=== PATIENT | female | born 1990 ===

== ENCOUNTER 2021-01-22 18:31 | Observation (INO) | payer OTHER ==
[2021-01-22] MEDS ORDERED: ACETAMINOPHEN 325 MG TAB PO PRN (21:00)
[2021-01-22] MEDS ORDERED: DOCUSATE SODIUM 100 MG CAP PO PRN (21:00)
[2021-01-22 22:25] VITALS: BP 104/62
--- NOTE | 2021-01-22 22:57 | Ultrasound Report ---
ULTRASOUND OBSTETRIC LIMITED ULTRASOUND BIOPHYSICAL PROFILE INDICATION / CLINICAL INFORMATION: GESTATION. Clinical Gestational Age (GA) in weeks, days: 39 weeks 2 days TECHNIQUE: Transabdominal. COMPARISON: None available. FINDINGS: BREATHING MOVEMENT = 2 GROSS BODY MOVEMENT = 2 TONE = 2 QUALITATIVE AMNIOTIC FLUID VOLUME = 2 TOTAL BIOPHYSICAL SCORE = 8/8 HEART RATE (beats per minute): 119 Single intrauterine . Biparietal Diameter = 9.0 cm = 36, 4 weeks, days Head Circumference = 31.9 cm = 36, 0 weeks, days Abdominal Circumference = 33.9 cm = 37, 6 weeks, days Femur Length = 6.3 cm = 32, 4 weeks, days Average Ultrasound Age (AUA) = 119 Heart Rate: 119 beats per minute. Estimated Weight in grams (if calculated): 2884 Estimated Weight Growth Percentile (if calculated): 9% Position: cephalic. IMPRESSION: 1. Single, living intrauterine with estimated sonographic age of 35 weeks 5 days. 2. Biophysical Score = 8/8 Signer Name: Kev Lin MD Signed: 01/22/2021 10:53 PM Workstation Name: [id number]
[2021-01-23] MEDS ORDERED: PRENATAL VIT27-FE FUMARATE-FOLIC ACID VIT TAB PO SCH (10:00)
== END 2021-01-22 22:39 | disposition home or self-care (01) ==
LOC: TRG 18:31 → APU 18:43 → TRG 20:19 → APU 20:41
DX: O36.5930 Maternal care for other known or suspected poor fetal growth, third trimester, not applicable or unspecified (principal); O62.9 Abnormality of forces of labor, unspecified; Z3A.39 39 weeks gestation of pregnancy
CPT/HCPCS: 59025; 76816; 76819; G0378; G0379

== ENCOUNTER 2021-01-28 10:23 | Inpatient (IN) | payer OTHER ==
[2021-01-28] MEDS ORDERED: miSOPROStol 200 MCG TAB PR PRN (15:20)
[2021-01-28] MEDS ORDERED: LIDOCAINE (2%) 20 MG/1 ML VIAL 20 ML MDV INFILTRATI NR (15:20)
[2021-01-28] MEDS ORDERED: LOPERAMIDE 2 MG CAP PO PRN (15:20)
[2021-01-28] MEDS ORDERED: OXYTOCIN 10 UNIT/1 ML INJ IM PRN (15:20)
[2021-01-28] MEDS ORDERED: METHYLERGONOVINE MALEATE 0.2 MG/ML VIAL IM PRN (15:20)
--- NOTE | 2021-01-28 15:29 | History and Physical Report ---
History of Present Illness Date of examination: 01/28/21 Date of admission: 01/28/21 10:24 Chief complaint: My water broke at 0700 this morning History of present illness: Early entry to care at [facility], course complicated by +Covid (12/31/2020). Past History Past Medical History: hypertension Past Surgical History: no surgical history Family/Genetic History: hypertension (Mother) Social history: no significant social history - Obstetrical History Expected Date of Delivery: 01/27/21 Actual Gestation: 40 Week(s) 1 Day(s) : 3 Para: 2 Hx # Term Pregnancies: 2 Number of Living Children: 2 #1 Infant Gender: Male year: ,[birth year] Birthweight: 4500 kg Method of Delivery: Vaginal Gestational age at delivery: 40 #2 Infant Gender: Female year: ,[birth year] Birthweight: 3000 kg Method of Delivery: Vaginal Medications and Allergies Allergies Allergy/AdvReac Type Severity Reaction Status Date / Time No Known Allergies Allergy Unverified 01/22/21 20:00 Home Medications Medication Instructions Recorded Confirmed Last Taken Type No Known Home Medications [No 01/22/21 01/22/21 Unknown History Reported Home Medications] Active Meds: Active Medications Acetaminophen (Acetaminophen 325 Mg Tab) 650 mg PO Q4H PRN PRN Reason: Pain, Mild (1-3) Butorphanol Tartrate (Butorphanol 2 Mg/1 Ml Inj) 2 mg IV Q2H PRN PRN Reason: Pain , Severe (7-10) Carboprost Tromethamine (Carboprost Tromethamine 250 Mcg/1 Ml Inj) 250 mcg IM ONCE PRN PRN Reason: Uterine Bleeding Ephedrine Sulfate (Ephedrine Sulfate 50 Mg/1 Ml Inj) 10 mg IV Q2M PRN PRN Reason: Hypotension Oxytocin/Sodium Chloride (Pitocin/Ns 30 Unit/500ml) 30 units in 500 mls @ 4 mls/hr IV TITR BECKA; Protocol Lactated Ringer's (Lactated Ringers) 1,000 mls @ 125 mls/hr IV DIRECT BECKA Oxytocin/Sodium Chloride (Pitocin/Ns 30 Unit/500ml) 30 units in 500 mls @ 40 mls/hr IV TITR BECKA; Protocol Lidocaine (Lidocaine (2%) 20 Mg/1 Ml Vial 20 Ml Mdv) 20 ml INFILTRATI ONCE ONE Stop: 01/28/21 15:21 Loperamide HCl (Loperamide 2 Mg Cap) 2 mg PO ONCE PRN PRN Reason: give with Hemabate Methylergonovine Maleate (Methylergonovine Maleate 0.2 Mg/Ml Vial) 0.2 mg IM ONCE PRN PRN Reason: Uterine Bleeding Mineral Oil (Mineral Oil 30 Ml Oral Liqd) 30 ml PO QHS PRN PRN Reason: Constipation Misoprostol (Misoprostol 200 Mcg Tab) 800 mcg DE ONCE PRN PRN Reason: Uterine Bleeding Ondansetron HCl (Ondansetron 4 Mg/2 Ml Inj) 4 mg IV Q8H PRN PRN Reason: Nausea And Vomiting Oxytocin (Oxytocin 10 Unit/1 Ml Inj) 10 unit IM ONCE PRN PRN Reason: Uterine Bleeding Terbutaline Sulfate (Terbutaline 1 Mg/1 Ml Inj) 0.25 mg SUB-Q ONCE PRN PRN Reason: Hyperstimulation/Hypertonicity Review of Systems All systems: negative - Vital Signs Vital signs: Vital Signs Pulse Pulse Ox 73 97 01/28/21 10:26 01/28/21 10:26 Temp Pulse Resp BP Pulse Ox 98.2 F 74 16 119/82 97 01/28/21 11:18 01/28/21 15:01 01/28/21 11:18 01/28/21 11:18 01/28/21 15:01 - Physical Exam Breasts: Positive: normal Cardiovascular: Regular rate Lungs: Positive: Clear to auscultation, Normal air movement Abdomen: Positive: normal appearance, normal bowel sounds Genitourinary (Female): Positive: normal external genitalia, normal perenium Vagina: Positive: normal moisture Uterus: Positive: enlarged Anus/Rectum: Positive: normal perianal skin Extremities: Positive: normal - Obstetrical FHR: category 1 Uterine Contraction Monitor Mode: External Cervical Dilatation: 3 (VTX; BOW palpated) Cervical Effacement Percentage: 60 station: -3 Uterine Contraction Pattern: Irregular Uterine Tone Measurement Phase: Resting Uterine Contraction Intensity: Moderate Results Abnormal lab results 01/28/21 01/28/21 Range/Units 11:20 12:15 Membranes Rupture Positive A Positive A (Negative) All other labs normal. Assessment and Plan A: IUP @ 40 1/7 Weeks Category I Tracing PROM GBS Negative P: Admit to L&D per Routine Orders Pitocin Induction
[2021-01-28] MEDS ORDERED: ePHEDrine SULFATE 50 MG/1 ML INJ IV PRN (16:00)
[2021-01-28] MEDS ORDERED: TERBUTALINE 1 MG/1 ML INJ SUB-Q PRN (16:00)
[2021-01-28] MEDS ORDERED: OXYTOCIN DRIP 30 UNITS/500 ML BAG IV SCH ×2 (16:00)
[2021-01-28] MEDS ORDERED: ACETAMINOPHEN 325 MG TAB PO PRN (16:00)
[2021-01-28] MEDS ORDERED: ONDANSETRON 4 MG/2 ML INJ IV PRN (16:00)
[2021-01-28] MEDS ORDERED: CARBOPROST TROMETHAMINE 250 MCG/1 ML INJ IM PRN (16:00)
[2021-01-28] MEDS ORDERED: LACTATED RINGERS 1,000 ML IV SCH (16:00)
[2021-01-28 17:01] LABS: Mean Corpuscular HGB Conc 33 % (30-34); Mean Corpuscular Volume 86 fl (79-97); Platelet Count 221 K/mm3 (140-440); Red Blood Count 4.18 M/mm3 (3.65-5.03); Red Cell Distribution Width 16.6 % (13.2-15.2)
[2021-01-28] MEDS: BUTORPHANOL 2 MG/1 ML INJ IV PRN (21:40)
[2021-01-28] MEDS ORDERED: MINERAL OIL 30 ML ORAL LIQD PO PRN (22:00)
--- NOTE | 2021-01-28 22:02 | Progress Note ---
Subjective - Subjective Date of service: 01/28/21 Interval history: PM rounds: 4cm/50%/-3 Revloc: Q2 minutes Continue oxytocin as per protocol CFM Maternal/ well being reassuring overall expect Objective - Vital Signs Vital Signs: Vital Signs - 12hr 01/28/21 01/28/21 01/28/21 10:26 10:31 10:36 Temperature Pulse Rate 73 79 76 Respiratory Rate Blood Pressure Blood Pressure [Left] O2 Sat by Pulse 97 97 97 Oximetry O2 Sat by Pulse Oximetry [ Anterior Bilateral Throughout] 01/28/21 01/28/21 01/28/21 10:41 10:46 10:51 Temperature Pulse Rate 75 85 73 Respiratory Rate Blood Pressure Blood Pressure [Left] O2 Sat by Pulse 97 95 98 Oximetry O2 Sat by Pulse Oximetry [ Anterior Bilateral Throughout] 01/28/21 01/28/21 01/28/21 10:56 11:01 11:06 Temperature Pulse Rate 76 79 76 Respiratory Rate Blood Pressure Blood Pressure [Left] O2 Sat by Pulse 97 96 97 Oximetry O2 Sat by Pulse Oximetry [ Anterior Bilateral Throughout] 01/28/21 01/28/21 01/28/21 11:11 11:16 11:18 Temperature 98.2 F Pulse Rate 73 66 73 Respiratory 16 Rate Blood Pressure Blood Pressure 119/82 [Left] O2 Sat by Pulse 96 98 98 Oximetry O2 Sat by Pulse Oximetry [ Anterior Bilateral Throughout] 01/28/21 01/28/21 01/28/21 11:21 11:26 11:31 Temperature Pulse Rate 69 74 69 Respiratory Rate Blood Pressure Blood Pressure [Left] O2 Sat by Pulse 98 97 97 Oximetry O2 Sat by Pulse Oximetry [ Anterior Bilateral Throughout] 01/28/21 01/28/21 01/28/21 11:36 11:41 11:46 Temperature Pulse Rate 65 80 71 Respiratory Rate Blood Pressure Blood Pressure [Left] O2 Sat by Pulse 96 95 96 Oximetry O2 Sat by Pulse Oximetry [ Anterior Bilateral Throughout] 01/28/21 01/28/21 01/28/21 11:51 11:56 12:01 Temperature Pulse Rate 73 71 79 Respiratory Rate Blood Pressure Blood Pressure [Left] O2 Sat by Pulse 96 96 97 Oximetry O2 Sat by Pulse Oximetry [ Anterior Bilateral Throughout] 01/28/21 01/28/21 01/28/21 12:06 12:11 12:16 Temperature Pulse Rate 74 68 84 Respiratory Rate Blood Pressure Blood Pressure [Left] O2 Sat by Pulse 97 96 97 Oximetry O2 Sat by Pulse Oximetry [ Anterior Bilateral Throughout] 01/28/21 01/28/21 01/28/21 12:21 12:26 12:31 Temperature Pulse Rate 73 79 75 Respiratory Rate Blood Pressure Blood Pressure [Left] O2 Sat by Pulse 96 95 97 Oximetry O2 Sat by Pulse Oximetry [ Anterior Bilateral Throughout] 01/28/21 01/28/21 01/28/21 12:36 12:41 12:46 Temperature Pulse Rate 73 70 74 Respiratory Rate Blood Pressure Blood Pressure [Left] O2 Sat by Pulse 96 98 98 Oximetry O2 Sat by Pulse Oximetry [ Anterior Bilateral Throughout] 01/28/21 01/28/21 01/28/21 12:51 12:56 13:01 Temperature Pulse Rate 80 74 79 Respiratory Rate Blood Pressure Blood Pressure [Left] O2 Sat by Pulse 97 97 97 Oximetry O2 Sat by Pulse Oximetry [ Anterior Bilateral Throughout] 01/28/21 01/28/21 01/28/21 13:06 13:11 13:16 Temperature Pulse Rate 76 79 87 Respiratory Rate Blood Pressure Blood Pressure [Left] O2 Sat by Pulse 97 98 96 Oximetry O2 Sat by Pulse Oximetry [ Anterior Bilateral Throughout] 01/28/21 01/28/21 01/28/21 13:21 13:26 13:31 Temperature Pulse Rate 70 87 81 Respiratory Rate Blood Pressure Blood Pressure [Left] O2 Sat by Pulse 98 97 98 Oximetry O2 Sat by Pulse Oximetry [ Anterior Bilateral Throughout] 01/28/21 01/28/21 01/28/21 13:36 13:41 13:46 Temperature Pulse Rate 78 74 77 Respiratory Rate Blood Pressure Blood Pressure [Left] O2 Sat by Pulse 97 99 98 Oximetry O2 Sat by Pulse Oximetry [ Anterior Bilateral Throughout] 01/28/21 01/28/21 01/28/21 13:51 14:09 14:14 Temperature Pulse Rate 71 77 84 Respiratory Rate Blood Pressure Blood Pressure [Left] O2 Sat by Pulse 98 97 97 Oximetry O2 Sat by Pulse Oximetry [ Anterior Bilateral Throughout] 01/28/21 01/28/21 01/28/21 14:19 14:24 15:01 Temperature Pulse Rate 69 76 74 Respiratory Rate Blood Pressure Blood Pressure [Left] O2 Sat by Pulse 98 98 97 Oximetry O2 Sat by Pulse Oximetry [ Anterior Bilateral Throughout] 01/28/21 01/28/21 01/28/21 15:25 15:30 15:35 Temperature Pulse Rate 82 61 82 Respiratory Rate Blood Pressure Blood Pressure [Left] O2 Sat by Pulse 97 98 97 Oximetry O2 Sat by Pulse Oximetry [ Anterior Bilateral Throughout] 01/28/21 01/28/21 01/28/21 15:40 15:45 15:50 Temperature Pulse Rate 68 74 63 Respiratory Rate Blood Pressure Blood Pressure [Left] O2 Sat by Pulse 97 96 97 Oximetry O2 Sat by Pulse Oximetry [ Anterior Bilateral Throughout] 01/28/21 01/28/21 01/28/21 15:57 15:59 16:01 Temperature 98.4 F Pulse Rate 81 Respiratory Rate Blood Pressure Blood Pressure [Left] O2 Sat by Pulse 97 Oximetry O2 Sat by Pulse 96 Oximetry [ Anterior Bilateral Throughout] 01/28/21 01/28/21 01/28/21 16:02 16:07 16:12 Temperature Pulse Rate 77 87 79 Respiratory Rate Blood Pressure Blood Pressure [Left] O2 Sat by Pulse 97 96 96 Oximetry O2 Sat by Pulse Oximetry [ Anterior Bilateral Throughout] 01/28/21 01/28/21 01/28/21 16:17 16:22 16:27 Temperature Pulse Rate 69 67 81 Respiratory Rate Blood Pressure Blood Pressure [Left] O2 Sat by Pulse 96 98 96 Oximetry O2 Sat by Pulse Oximetry [ Anterior Bilateral Throughout] 01/28/21 01/28/21 01/28/21 16:32 16:37 16:42 Temperature Pulse Rate 75 75 71 Respiratory Rate Blood Pressure Blood Pressure [Left] O2 Sat by Pulse 97 97 97 Oximetry O2 Sat by Pulse Oximetry [ Anterior Bilateral Throughout] 01/28/21 01/28/21 01/28/21 16:47 16:50 16:52 Temperature Pulse Rate 69 73 87 Respiratory Rate Blood Pressure Blood Pressure [Left] O2 Sat by Pulse 97 94 96 Oximetry O2 Sat by Pulse Oximetry [ Anterior Bilateral Throughout] 01/28/21 01/28/21 01/28/21 16:57 17:02 17:07 Temperature Pulse Rate 71 87 74 Respiratory Rate Blood Pressure Blood Pressure [Left] O2 Sat by Pulse 97 96 97 Oximetry O2 Sat by Pulse Oximetry [ Anterior Bilateral Throughout] 09/13/21 09/13/21 09/13/21 17:12 17:17 17:22 Temperature Pulse Rate 83 74 82 Respiratory Rate Blood Pressure Blood Pressure [Left] O2 Sat by Pulse 98 97 96 Oximetry O2 Sat by Pulse Oximetry [ Anterior Bilateral Throughout] 01/28/21 01/28/21 01/28/21 17:27 17:32 17:37 Temperature Pulse Rate 86 81 74 Respiratory Rate Blood Pressure Blood Pressure [Left] O2 Sat by Pulse 97 97 96 Oximetry O2 Sat by Pulse Oximetry [ Anterior Bilateral Throughout] 01/28/21 01/28/21 01/28/21 17:42 17:47 17:52 Temperature Pulse Rate 69 82 75 Respiratory Rate Blood Pressure Blood Pressure [Left] O2 Sat by Pulse 97 97 97 Oximetry O2 Sat by Pulse Oximetry [ Anterior Bilateral Throughout] 01/28/21 01/28/21 01/28/21 17:57 18:21 18:26 Temperature Pulse Rate 69 67 70 Respiratory Rate Blood Pressure Blood Pressure [Left] O2 Sat by Pulse 96 98 96 Oximetry O2 Sat by Pulse Oximetry [ Anterior Bilateral Throughout] 01/28/21 01/28/21 01/28/21 18:31 18:36 18:41 Temperature Pulse Rate 68 70 68 Respiratory Rate Blood Pressure Blood Pressure [Left] O2 Sat by Pulse 96 96 96 Oximetry O2 Sat by Pulse Oximetry [ Anterior Bilateral Throughout] 01/28/21 01/28/21 01/28/21 19:04 19:16 19:21 Temperature Pulse Rate 66 69 66 Respiratory Rate Blood Pressure 130/81 Blood Pressure [Left] O2 Sat by Pulse 96 97 Oximetry O2 Sat by Pulse Oximetry [ Anterior Bilateral Throughout] 01/28/21 01/28/21 01/28/21 19:26 19:31 19:36 Temperature Pulse Rate 67 68 75 Respiratory Rate Blood Pressure Blood Pressure [Left] O2 Sat by Pulse 96 96 96 Oximetry O2 Sat by Pulse Oximetry [ Anterior Bilateral Throughout] 01/28/21 21:40 Temperature Pulse Rate Respiratory 20 Rate Blood Pressure Blood Pressure [Left] O2 Sat by Pulse Oximetry O2 Sat by Pulse Oximetry [ Anterior Bilateral Throughout] - Labs Labs: Abnormal Labs 01/28/21 01/28/21 01/28/21 11:20 12:15 15:20 RDW 16.6 H Membranes Rupture Positive A Positive A Laboratory Results - last 24 hr 01/28/21 01/28/21 01/28/21 11:20 12:15 15:20 WBC 8.6 RBC 4.18 Hgb 12.0 Hct 36.0 MCV 86 MCH 29 MCHC 33 RDW 16.6 H Plt Count 221 Membranes Rupture Positive A Positive A Blood Type Antibody Screen 01/28/21 16:30 WBC RBC Hgb Hct MCV MCH MCHC RDW Plt Count Membranes Rupture Blood Type O POSITIVE Antibody Screen Negative
[2021-01-29] MEDS: BUTORPHANOL 2 MG/1 ML INJ IV PRN (00:56)
[2021-01-29] MEDS ORDERED: PROMETHAZINE 25 MG TAB PO PRN (04:45)
[2021-01-29] MEDS ORDERED: LANOLIN/ZINC/DIMETHICONE (LANSINOH) 7 GM TP PRN (04:45)
[2021-01-29] MEDS ORDERED: ACETAMINOPHEN 325 MG TAB PO PRN (04:45)
[2021-01-29] MEDS ORDERED: ONDANSETRON 4 MG/2 ML INJ IV PRN (04:45)
[2021-01-29] MEDS ORDERED: KETOROLAC 30 MG/1 ML INJ IV PRN (04:45)
[2021-01-29] MEDS ORDERED: PROMETHAZINE 25 MG RECT SUPP PR PRN (04:45)
[2021-01-29] MEDS ORDERED: HYDROcodone/ACETAMINOPHEN 5-325 MG TAB PO PRN (04:45)
[2021-01-29] MEDS ORDERED: MAGNESIUM HYDROXIDE (MOM) ORAL LIQD UDC PO PRN (04:45)
[2021-01-29] MEDS ORDERED: diphenhydrAMINE 25 MG CAP PO PRN (04:45)
[2021-01-29] MEDS ORDERED: oxyCODONE /ACETAMINOPHEN 5-325MG TAB PO PRN (04:45)
[2021-01-29] MEDS ORDERED: WITCH HAZEL/ GLYCERIN PAD TP PRN (04:45)
--- NOTE | 2021-01-29 04:45 | Procedure Note ---
OB Delivery Note - Delivery Date of Delivery: 01/29/21 Surgeon: LILI NUNEZ Estimated blood loss: 200cc - Vaginal Delivery position: OA Intrapartum events: none Delivery augmentation: pitocin Delivery monitor: external FHT, external uterine Route of delivery: Delivery placenta: spontaneous Delivery cord: 3 umbilical vessels Episiotomy: none Delivery laceration: none Delivery comments: Patient pushed to deliver a viable male over an intact perineum with 8/9. Position NARA, no nuchal cord. Spontaneous cry at delivery. Delivery of the anterior shoulder atraumatic, remainder of delivery uncomplicated. Cord clamped cut and baby handed to waiting PINA team. Spontaneous delivery of an intact placenta with three-vessel cord. Inspection of the perineum cervix and vagina revealed no lacerations. Firm fundus, EBL 200ml. All sponge needle and instrument counts correct x2. Mom and baby stable to . Rosalind Nunez MD
[2021-01-29] MEDS: IBUPROFEN 600 MG TAB PO SCH (14:45)
[2021-01-29 21:03] LABS: Hematocrit 31.9 % (30.3-42.9); Hemoglobin 10.6 gm/dl (10.1-14.3)
[2021-01-30] MEDS: IBUPROFEN 600 MG TAB PO SCH ×2 (05:22)
--- NOTE | 2021-01-30 10:29 | Progress Note ---
Assessment and Plan A: PP Day #1 Stable P: Follow Routine Orders D/C Home today per patient request RTO in 6 Weeks Subjective - Subjective Date of service: 01/30/21 Interval history: Early entry to care at [facility], course complicated by +Covid (12/31/2020). Patient reports: appetite normal, voiding normally, pain well controlled, flatus, bowel movement, ambulating normally [place]: doing well, bottle feeding (and ) Objective - Vital Signs Latest vital signs: Vital Signs Temp Pulse Resp BP BP Pulse Ox Pulse Ox 01/30/21 08:29 98.1 F 71 18 108/75 97 01/30/21 05:22 18 01/30/21 04:30 98.4 F 68 16 101/63 01/30/21 00:00 98.6 F 67 18 117/78 01/29/21 22:46 18 01/29/21 20:07 98.0 F 76 16 108/59 97 01/29/21 20:05 96 01/29/21 16:10 97.8 F 69 16 124/74 96 01/29/21 11:38 98.2 F 80 20 108/70 96 Intake and Output 01/29/21 01/30/21 01/30/21 22:59 06:59 14:59 Intake Total 420 600 Output Total 600 Balance -180 600 Intake: Oral 120 Intake, Free Water 300 600 Output: Urine 600 Void 600 Other: Total, Intake Amount 120 Total, Output Amount 150 # Voids Void 1 - Exam Breasts: Present: normal Cardiovascular: Present: Regular rate Lungs: Present: Clear to auscultation, Normal air movement Abdomen: Present: normal appearance, soft, normal bowel sounds Uterus: Present: normal, firm, fundal height below umbilicus Extremities: Present: normal
--- NOTE | 2021-01-30 10:31 | Discharge Summary ---
Providers - Providers Date of Admission: 01/28/21 10:24 Date of discharge: 01/30/21 Attending physician: LILI NUNEZ MD Primary care physician: LILI NUNEZ MD Hospitalization Reason for admission: rupture of membranes Delivery: Episiotomy: none Laceration: none Other procedures: none complications: none Discharge diagnosis: IUP at term delivered [place] baby: male Condition at discharge: Good Disposition: 01 HOME / SELF CARE / HOMELESS Plan - Provider Discharge Summary Activity: routine, no sex for 6 weeks, no heavy lifting 4 weeks, no strenuous exercise Diet: routine Instructions: routine Additional instructions: [] Smoking cessation referral if applicable(refer to patient education folder for contact #) [] Refer to [facility]'s [facility] Booklet Call your doctor immediately for: * Fever > 100.5 * Heavy vaginal bleeding ( >1 pad per hour) * Severe persistent headache * Shortness of breath * Reddened, hot, painful area to leg or breast * Drainage or odor from incision. * Keep incision clean and dry at all times and follow doctor's instructions regarding bathing/showering - Follow up plan Follow up: LILI NUNEZ MD [Primary Care Provider] - 6 Weeks
[2021-01-30 14:18] VITALS: BP 104/70
== END 2021-01-30 15:10 | disposition home or self-care (01) | DRG 806 ==
LOC: TRG 10:23 → LD 10:24 → APU 10:24 → OBSVTOIN 10:24 → TRG 14:01 → LD 14:09 → OB 01-29 07:45
PROVIDERS: ADMIT Obstetrics & Gynecology; ATTEND Obstetrics & Gynecology
PROC: 10E0XZZ Delivery of Products of Conception, External Approach (ICD-10-PCS; principal; 2021-01-29)
DX: O42.02 Full-term premature rupture of membranes, onset of labor within 24 hours of rupture (principal); O10.92 Unspecified pre-existing hypertension complicating childbirth; Z37.0 Single live birth; Z3A.40 40 weeks gestation of pregnancy; Z20.822 Contact with and (suspected) exposure to COVID-19
CPT/HCPCS: 36415; 84112; 85014; 85018; 85027; 86850; 86900; 86901; 99211; G0378; G0463; J0595; J2590; J7120; U0003